=== PATIENT | male | born 1950 | race Two or more races ===

== ENCOUNTER → 2016-12-05 | Outpatient (CLI) | payer MEDICARE, MEDICAID ==
--- NOTE | 2016-12-05 17:39 | Diagnostic Imaging Report ---
Indication: COUGH Technique: 2 views of the chest Comparison: none Findings: Lungs and pleural spaces are clear. Heart size is normal. Impression: No acute process
== END | disposition home or self-care (01) ==
LOC: LAB 15:29
DX: R05 Cough (principal)
CPT/HCPCS: 71020